=== PATIENT | female | born 1970 | race Hispanic/Latino ===

== ENCOUNTER 2016-07-07 15:08 | Outpatient (CLI) | payer OTHER ==
--- NOTE | 2016-07-08 13:06 | Mammography Report ---
BILATERAL DIGITAL DIAGNOSTIC MAMMOGRAM and RIGHT BREAST ULTRASOUND: 07/07/16 15:08:00 CLINICAL: Recalled for bilateral asymmetries. COMPARISON:06/05/16 screening FINDINGS: Bilateral ML and spot bilateral spot compression views were performed. Satisfactory effacement of the previously described left asymmetry on the spot view and a negative left lateral view.A circumscribed right upper asymmetry persists on the lateral view and partially effaces on the spot image. Ultrasound of the right breast (including all four quadrants and the retroareolar area) was performed and demonstrated normal a benign cystic cluster at 11 o'clock 2 cm from the nipple. It measures 1.3 x 0.9 x 0.4 cm and correlates with the mammographic density. No solid mass or shadowing. structures. IMPRESSION: Benign cystic cluster right breast and negative left breast. BI-RADS CATEGORY: 2 - - Benign RECOMMENDATION: Routine mammographic screening in one year. ACR BI-RADS MAMMOGRAPHIC CODES: 0 = Needs additional imaging evaluation; 1 = Negative; 2 = Benign; 3 = Probably benign; 4 = Suspicious; 5 = Malignant; 6 = Known biopsy-proven malignancy COMMENT: 1. Dense breast tissue, i.e., adenosis, fibrocystic changes, etc., may obscure an underlying neoplasm. 2. Approximately 10% of cancers are not detected with mammography. 3. A negative mammography report should not delay biopsy if a clinically suspicious mass is present. COMMENT: Patient follow-up letters are generated via our [employer] application.
== END 2016-07-07 15:09 | disposition home or self-care (01) ==
LOC: SPVWC 15:08
PROVIDERS: ATTEND Obstetrics & Gynecology Gynecology
DX: R92.8 Other abnormal and inconclusive findings on diagnostic imaging of breast (principal)
CPT/HCPCS: 76641; G0204; 77066